=== PATIENT | female | born 1975 | race Caucasian/White ===

== ENCOUNTER → 2016-10-10 | Outpatient (CLI) | payer BC | END | disposition home or self-care (01) | LOC: C.RDSM 11:34 | PROVIDERS: ATTEND Family Medicine | DX: M25.511 Pain in right shoulder (principal) ==

== ENCOUNTER → 2016-11-14 | Outpatient (CLI) | payer BC | END | disposition home or self-care (01) | LOC: C.RDSM 08:23 | PROVIDERS: ATTEND Family Medicine | DX: M25.511 Pain in right shoulder (principal); G54.0 Brachial plexus disorders ==